=== PATIENT | female | born 1960 | race Caucasian/White ===

== ENCOUNTER → 2018-02-24 | Outpatient (CLI) | payer MEDICARE, MEDICAID ==
[~2018-02-24] MED LIST: ARIP10TA2 PO; ASP81TEC PO; CITA40TA19 PO; DIVA-20 PO; EFAV1TAB3 PO; ESCI20TA2; ESTR0.9T; HCTZ; MTH10T PO; NITR-65 PO; OXYC-197 PO
--- NOTE | 2018-02-24 19:32 | Diagnostic Imaging Report ---
INDICATION: Fall. Pain. COMPARISON: None. FINDINGS: Three views of the lumbar spine are obtained. There is mild levocurvature of the lumbar spine. Alignment is otherwise unremarkable. No acute fracture or osseous destructive process is seen. The pedicles appear intact. Disc spaces appear fairly preserved. The sacroiliac joints appear unremarkable. Multiple gallstones are seen in the right upper quadrant. IMPRESSION: Mild levocurvature. No acute osseous abnormality is seen. Incidental cholelithiasis is noted. Dictated by: Dictated on workstation # [id number]
--- NOTE | 2018-02-24 19:52 | Diagnostic Imaging Report ---
INDICATION: Status post fall with left-sided rib pain. TECHNIQUE: 3 views left ribs 7:18 PM. CORRELATION STUDY: None FINDINGS: Visualized left ribs demonstrate no acute displaced fracture. Scarlike formation about the left lung apex. Calcified granuloma left lung base. No infiltrate, effusion or pneumothorax. IMPRESSION: 1. Negative for acute displaced left rib fracture. Report faxed to [phone] at 7:53 p.m. 02/24/2018/cb Dictated by: Dictated on workstation # [id number]
== END ==
LOC: RAD 18:43
PROVIDERS: ATTEND Nurse Practitioner Family
DX: M43.8X6 Other specified deforming dorsopathies, lumbar region (principal); R07.81 Pleurodynia
CPT/HCPCS: 71100; 72100

== ENCOUNTER 2019-06-26 12:55 | Emergency (ER) | payer MEDICARE, MEDICAID ==
[~2019-06-26] VITALS: Ht 162.5 cm; Wt 56.8 kg
[~2019-06-26 12:55] MED LIST changes: -OXYC-197 PO; +OXYC1TAB87 PO
--- NOTE | 2019-06-26 13:23 | ED Upper Extremity ---
General Chief Complaint: Upper Extremity Stated Complaint: L WRIST PAIN FELL AT HOME Nursing Triage Note: PT TO RM 9 BY WHEELCHAIR WIHT COMPLAINT OF LEFT WRIST INJURY. PT STATES SHE FELL LAST NIGHT AT HOME. WENT TO [facility] BUT SENT HER OVER HERE FOR XRAYS. Nursing Sepsis Screen: No Definite Risk Source: patient Exam Limitations: no limitations History of Present Illness Date Seen by Provider: Jun 26, 2019 Time Seen by Provider: 13:22 Initial Comments 59-year-old female patient presents with complaints of left wrist pain, left forearm, and left shoulder pain after tripping and falling at home early this a.m. Patient reports incident occurred at 0200 today. She denies hitting her head, LOC, confusion, dizziness, neck pain, or back pain. Location Injury Occurred: home Onset: other (0200) Pain/Injury Location: left shoulder, left arm, left elbow, left forearm, left wrist, left hand Method of Injury: fell Modifying Factors: Worse With Movement, Worse With Pain Medication (no improvement with motrin at 0400 this AM.) Allergies and Home Medications Allergies Coded Allergies: No Known Drug Allergies (Verified , 04/26/08) Home Medications Hydrocodone Bit/Acetaminophen 1 Tab Tab, 1 EACH PO Q6H PRN for PAIN-MODERATE Prescribed by: HEATH AZEVEDO on 06/26/19 1433 Oxycodone HCl/Acetaminophen 1 Each Tablet, 1 EACH PO Q4H PRN for PAIN Prescribed by: MILAGROS BRADFORD on 05/02/15 0351 Patient Home Medication List Home Medication List Reviewed: Yes Review of Systems Constitutional: no symptoms reported EENTM: no symptoms reported Respiratory: no symptoms reported Cardiovascular: no symptoms reported Gastrointestinal: no symptoms reported Genitourinary: no symptoms reported Musculoskeletal: see HPI; No back pain; joint pain, joint swelling; No neck pain Skin: other (bruising to the left wrist) Psychiatric/Neurological: Denies Headache, Denies Numbness, Denies Paresthesia, Denies Tingling, Denies Weakness All Other Systems Reviewed Negative Unless Noted: Yes (Negative excepted noted.) Past Rkebyxf-Pousmt-Pgpazb Hx Past Med/Social Hx: Reviewed Nursing Past Med/Soc Hx Patient Social History Alcohol Use: Denies Use Recreational Drug Use: Yes (POT) Smoking Status: Current Everyday Smoker Type Used: Cigarettes Recent Foreign Travel: No Contact w/Someone Who Travel: No Recent Infectious Disease Expo: No Recent Hopitalizations: Yes Physical Abuse: No Sexual Abuse: No Mistreated: No Fear: No Immunizations Up To Date Tetanus Booster (TDap): Unknown PED Vaccines UTD: Yes Past Medical History Surgeries: Yes Hysterectomy Respiratory: No Cardiac: Yes Hypertension Neurological: No Reproductive Disorders: Yes Sexually Transmitted Disease: Yes Gastrointestinal: No Musculoskeletal: No Endocrine: No Psychosocial: Yes Integumentary: No Blood Disorders: No Family Medical History Reviewed Nursing Family Hx No Pertinent Family Hx Physical Exam Vital Signs Vital Signs - First Documented 06/26/19 13:01 Pulse 89 Resp 16 B/P (MAP) 107/75 (86) Pulse Ox 95 O2 Delivery Room Air Capillary Refill : Less Than 3 Seconds Height, Weight, BMI Height: 5'5" Weight: 125lbs. oz. 56.012019dz; 21.00 BMI Method:Stated General Appearance: WD/WN, no apparent distress HEENT: PERRL/EOMI, pharynx normal Neck: supple, normal inspection Cardiovascular: normal peripheral pulses, regular rate, rhythm, no murmur Respiratory: lungs clear, normal breath sounds, no respiratory distress, no accessory muscle use Shoulder: bone tenderness (tenderness to palpation left shoulder), limited ROM (left shoulder), pain (left shoulder), soft tissue tenderness (left shoulder), swelling (left shoulder swelling) Elbow/Forearm: normal inspection, no evidence of injury, Left, bone tenderness, limited ROM, pain, soft tissue tenderness Wrist: Yes asymmetry (left wrist), Yes bone tenderness (left wrist tendon), Yes ecchymosis, Yes limited ROM (left wrist), Yes pain (left wrist), Yes soft tissue tenderness (left wrist), Yes swelling (left wrist) Hand: Left, asymmetry, bone tenderness, ecchymosis, limited ROM, soft tissue tenderness, swelling Neurologic/Tendon: normal sensation, normal motor functions, normal tendon functions, responds to pain, no evidence tendon injury Neurologic/Psychiatric: no motor/sensory deficits, alert, normal mood/affect, oriented x 3 Skin: normal color, warm/dry, ecchymosis (left wrist and hand) Procedures/Interventions Splinting and Joint Reduction : Location: left wrist Pre-Proc Neuro Vasc Exam: normal Post-Proc Neuro Vasc Exam: normal Arm Sling: Medium Hand-Made Type: orthoglass (orthoglass secured with liana wraps) Splint Application: Short Arm (stirrup splint) Progress/Results/Core Measures Results/Orders My Orders Orders - HEATH AZEVEDO Forearm, Left, 2 Views (06/26/19 13:27) Humerus, Left, 2 Views (06/26/19 13:27) Hand, Left, 3 Views (06/26/19 13:27) Hydrocodone/Apap 10/325 Tablet (Lortab 1 (06/26/19 13:27) Vital Signs/I&O 06/26/19 06/26/19 13:01 15:11 Pulse 89 85 Resp 16 17 B/P (MAP) 107/75 (86) 108/79 (86) Pulse Ox 95 96 O2 Delivery Room Air Room Air Blood Pressure Mean: 86 Diagnostic Imaging Diagonstic Imaging: Xray Plain Films/CT/US/NM/MRI: other (left humerus) Comments Date of Exam:06/26/19 HUMERUS, LEFT, 2 VIEWS INDICATION: Fall and left arm pain. TIME OF EXAM: 01:58 p.m. FINDINGS: Two views of the left humerus demonstrate normal alignment at the shoulder and elbow. The humerus is intact. No fractures are seen. IMPRESSION: No acute bony abnormality is detected. Dictated on workstation # [id number] Dict: 06/26/19 1404 Trans: 06/26/19 1417 [id number] Interpreted by: MERYL SCHUSTER MD Electronically signed by: Reviewed: Reviewed by Me (radiology report reviewed by me) Diagonstic Imaging: Xray Plain Films/CT/US/NM/MRI: other (left forearm) Comments Date of Exam:06/26/19 FOREARM, LEFT, 2 VIEWS INDICATION: Fall with left arm pain. TIME OF EXAM: 01:55 p.m. FINDINGS: Two views of the left forearm were obtained. There is a fracture of the distal radius, which shows some mild impaction. Fracture line appears to extend to the articular surface. There is also fracture through the ulnar styloid. Alignment of the carpus and elbow appears normal. IMPRESSION: Distal radius and ulnar fractures. Dictated on workstation # [id number] Reviewed: Reviewed by Me (radiology report reviewed by me) Diagonstic Imaging: Xray Plain Films/CT/US/NM/MRI: hand Comments Date of Exam:06/26/19 HAND, LEFT, 3 VIEWS INDICATION: Fall with left wrist injury. TIME OF EXAM: 01:52 p.m. FINDINGS: Three views of the left hand were obtained. There is mildly impacted distal radius fracture with intra-articular extension. No significant displacement or angulation is seen. There is also fracture involving the ulnar styloid. Carpal bones show triscaphe and first CMC joint degenerative changes. No carpal fracture is seen. The visualized metacarpals and phalanges appear to be intact. IMPRESSION: Distal radius and ulnar fractures. Dictated on workstation # [id number] Reviewed: Reviewed by Me (radiology report reviewed by me) Departure Communication (Admissions) patient seen and evaluated. plain radiographs of the humerus, forearm, and hand obtained. results discussed with the patient. plan for dsch to home with f/u as an outpatient with dr. abrams. Impression Primary Impression: Fracture of distal radius and ulna Qualified Codes: S52.502A - Unspecified fracture of the lower end of left radius, initial encounter for closed fracture; S52.602A - Unspecified fracture of lower end of left ulna, initial encounter for closed fracture Disposition: HOME, SELF-CARE Condition: Improved Departure-Patient Inst. Decision time for Depature: 14:30 Referrals: ADI PAEZ (PCP) Primary Care Physician MAGNO ABRAMS MD Patient Instructions: How to Use a Shoulder Sling, Wrist Fracture (DC) Add. Discharge Instructions: All discharge instructions reviewed with patient and/or family. Voiced understanding. Medications as instructed. No ibuprofen or Aleve. Elevate the left wrist on pillows. Ice pack for 20 minute intervals as needed. Arm sling as instructed. Keep the splint clean and dry. Right arm activities only until released by Dr. Abrams. Follow-up with Dr. Abrams as an outpatient within the next 7 days for recheck, call today or Saturday morning for appointment time. Return to the emergency department for worsened symptoms, pain from the splint, or any other concerns. Scripts Hydrocodone Bit/Acetaminophen (Hydrocodone/Acetaminophen 5/325mg Tablet) 1 Tab Tab 1 EACH PO Q6H PRN for PAIN-MODERATE MDD 10, #14 TAB 0 Refills Prov: HEATH AZEVEDO 06/26/19 Work/School Note: Local Medical Staff Listing, Work Release Form Date Seen in the Emergency Department: Jun 26, 2019 Return to Work: Jun 27, 2019 Other Restrictions Listed Below: right arm activities only until released by doctor. HEATH AZEVEDO Jun 26, 2019 13:23
[2019-06-26] MEDS ORDERED: HYDROcodone/APAP 10 MG/325 MG (LORTAB) TAB PO STA (13:27)
--- NOTE | 2019-06-26 14:07 | Diagnostic Imaging Report ---
INDICATION: Fall with left arm pain. TIME OF EXAM: 01:55 p.m. FINDINGS: Two views of the left forearm were obtained. There is a fracture of the distal radius, which shows some mild impaction. Fracture line appears to extend to the articular surface. There is also fracture through the ulnar styloid. Alignment of the carpus and elbow appears normal. IMPRESSION: Distal radius and ulnar fractures. Dictated by: Dictated on workstation # [id number]
--- NOTE | 2019-06-26 14:17 | Diagnostic Imaging Report ---
INDICATION: Fall with left wrist injury. TIME OF EXAM: 01:52 p.m. FINDINGS: Three views of the left hand were obtained. There is mildly impacted distal radius fracture with intra-articular extension. No significant displacement or angulation is seen. There is also fracture involving the ulnar styloid. Carpal bones show triscaphe and first CMC joint degenerative changes. No carpal fracture is seen. The visualized metacarpals and phalanges appear to be intact. IMPRESSION: Distal radius and ulnar fractures. Dictated by: Dictated on workstation # [id number]
--- NOTE | 2019-06-26 14:17 | Diagnostic Imaging Report ---
INDICATION: Fall and left arm pain. TIME OF EXAM: 01:58 p.m. FINDINGS: Two views of the left humerus demonstrate normal alignment at the shoulder and elbow. The humerus is intact. No fractures are seen. IMPRESSION: No acute bony abnormality is detected. Dictated by: Dictated on workstation # [id number]
[2019-06-26] MEDS ORDERED: ACHD5005 PO (14:33)
[2019-06-26 15:11] VITALS: BP 108/79
== END 2019-06-26 15:11 | disposition home or self-care (01) ==
LOC: EDUNIT# 12:55 → ER 12:57
DX: S52.502A Unspecified fracture of the lower end of left radius, initial encounter for closed fracture (principal); S52.602A Unspecified fracture of lower end of left ulna, initial encounter for closed fracture; I10 Essential (primary) hypertension; F17.210 Nicotine dependence, cigarettes, uncomplicated; Z90.710 Acquired absence of both cervix and uterus; W01.0XXA Fall on same level from slipping, tripping and stumbling without subsequent striking against object, initial encounter; Y92.009 Unspecified place in unspecified non-institutional (private) residence as the place of occurrence of the external cause
CPT/HCPCS: 29125; 73060; 73090; 73130

== ENCOUNTER → 2019-09-28 | Outpatient (CLI) | payer MEDICARE, MEDICAID ==
[~2019-09-28] MED LIST changes: +ACHD5005 PO
== END ==
LOC: RAD 15:09
PROVIDERS: ATTEND Nurse Practitioner
DX: S56.3 Injury of extensor or abductor muscles, fascia and tendons of thumb at forearm level (principal); X58.XXXS Exposure to other specified factors, sequela